=== PATIENT | female | born 1935 | race Caucasian/White ===

== ENCOUNTER → 2016-05-20 | Outpatient (CLI) | payer OTHER ==
[~2016-05-20] VITALS: Ht 160 cm; Wt 68.0 kg
[~2016-05-20] MED LIST: AMBIEN CR12.5 MG PO; ASPIR 8181 MG PO; CALCIUM 500 +1 EAC5 PO; CENTRUM SILVER1 EAC4 PO; COLACE 100 MG100 MG PO; COSAMIN DS TAB1 EACH PO; DILAUDID 2 MG TA2 MG PO; GABAPENTIN 100100 MG PO; HYDROCODONE-AP1 EAC6 PO; LIPITOR 20 MG T20 M1 PO; METAMUCIL PAC1 UDPKT PO; TOPROL XL100 MG PO; ULTRACET TABLET1 TAB PO; VALIUM5 MG PO
--- NOTE | ~2016-05-20 | HPC ---
[facility] [place] [address] PAIN MANAGEMENT CONSULTATION Name: ELODIA OROZCO Room #: REG [facility].#: [id number] Admission: 05/20/16 Attend Phys: Marc Oconnor MD Discharge: Date of : 34 Report #: [id number] THIS REPORT FOR: //name// CC: MEGHANN Oconnor DATE OF REGISTRATION: 05/20/2016 CHIEF COMPLAINT: Intermittent excruciating right knee pain. PHYSICAL EXAMINATION: I had rather 45 minute consultation today with the patient. She is a very pleasant 80-year-old who appears much younger than her stated age. She is here today with her . She has been suffering from severe pain in her right knee. She underwent a very successful right knee arthroplasty in 2007. For 2-3 years following that, she had no problems whatsoever. She then began experiencing intermittent pains in about 2014. The description of these episodes is as follows with no particular activity identified. Usually while in the standing position she develops a very sudden excruciating sharp stabbing pain in her right knee. She cannot really define it is medial or lateral. It seems to involve the entire knee joint and radiates up from the knee into the anterior thigh and down into the lower leg. She is unable to bear weight when this occurs and her pain goes to a 10. She has been typically getting off of her feet, laying down waiting, but the pain does not necessarily go away all that quickly. She has had to take medication and has more recently been to the Emergency Room to receive treatments usually strong opioid including IV Valium plus the opioid Dilaudid most recently, which was able to break the cycle of pain. She has seen numerous physicians including Dr. Nelson Jacob. She saw Dr. Philip Kwan at the [facility]. Dr. Kwan has tried some injections including the aggressive approach of genicular nerve radiofrequency, which was unhelpful. She went to the [facility] where she was given a thorough workup. I reviewed those records, but they do not really show much in the way of diagnostic information for us. The neurologist told her it was not neuropathic and by that I am assuming that they meant that this was not a radicular pain from her back nor a more peripheral large branch nerve that had been compressed or involved based upon findings of EMG. Trials of prophylactic medication have been limited although recently she was initiated on gabapentin. The dose has been gradually increased to tolerance and she is currently at 1200 mg per day. She has not had an episode of pain since initiating the dose of 1200 and we discussed this later in her visit. She has hydrocodone to take for severe episodes as well as tramadol. She and her spend half of the year in [place], where they have a home in [place]. A physician there in the Emergency Room provided her with medication to use for severe episode. He gave her a combination of Valium 5 mg tablets to be used [address] [address] PAIN MANAGEMENT CONSULTATION Name: ELODIA OROZCO Room #: REG [facility]EL[facility] Arellano#: [id number] Admission: 05/20/16 Attend Phys: Marc Oconnor MD Discharge: Date of : 34 Report #: [id number] with hydromorphone 2 mg tablets, instructions were not all that clear to the patient and we discussed some of the potential benefits and risks of those medicines as well later in the visit. PAST MEDICAL HISTORY: Includes surgeries on her right knee in 1992, left knee arthroscopy in 1996, left hip replacement in 1993, right hip replacement in 1997. She had a revision of the right hip in 2005. Dr. Isac Davis placed an X-STOP for spinal stenosis in 2007. The right knee replacement was performed by Dr. Nelson Jacob in 2007 and was described above[address] Dr[address] Kwan in April of last year and in May of last year tried cryotherapy and genicular nerve ablation both unsuccessful in stopping these episodes. Other surgeries include cholecystectomy in 1999. She had a bundle branch block noted on her electrocardiogram in 2007 and underwent cardiac catheterization. She has had cataract surgery as well. REVIEW OF SYSTEMS: Completed by the patient describes cataracts, history of SVT, but otherwise her primary complaints are related to the history given above involving her right knee. MEDICATIONS: Toprol, Ambien, Lipitor, Metamucil, Colace, aspirin, centrum silver, glucosamine, Os-Taz, tramadol, gabapentin 1200 mg daily, hydrocodone p.r.n. SOCIAL HISTORY: She and her travel back and forth between [place] and [place] where they continue to have family to visit. They have homes in both locations. 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 She denies use of tobacco. She enjoys an alcoholic beverage most in the evenings, sometimes more than one. PHYSICAL EXAMINATION: GENERAL: She is an attractive 80-year-old again looking much younger than her stated age. VITAL SIGNS: Her blood pressure is 159/83, heart rate 73, BMI is 26.6. EXTREMITIES: I examined carefully both knees. She has no effusion, no swelling noted. There is no area of tenderness. There is no crepitus with movement. She has good flexion and extension. Lateral movements were tested without any exacerbation of pain. She is able to ambulate easily. IMPRESSION AND PLAN: Intermittent episodic right knee pain. We spent a lot of time today trying to discuss why this might be triggered. There is a possibility that there is some mechanical feature here that triggers a small branch of a nerve, which would then cause very severe localized pain syndrome associated with the additional spasm and tightness. The underlying inciting trauma may be to a small branch nerve. In this case a suppressing medicine like gabapentin might provide nice prophylaxis. I described this to her as we might manage intermittent pain problems such as a migraine headache. Patients who [facility] [address] [place] [address] PAIN MANAGEMENT CONSULTATION Name: ELODIA OROZCO Room #: REG [facility].#: [id number] Admission: 05/20/16 Attend Phys: Marc Oconnor MD Discharge: Date of : 34 Report #: [id number] have 20 migraine headaches per month are quite pleased when their prophylactic medicine reduces the incidence of trigger to once every few months. Hopefully, gabapentin at proper dose well tolerated will allow her that benefit. My final recommendation was to be quite cautious with the combination of a benzodiazepine and a strong opioid such as hydromorphone. All this may be very effective in alleviating her pain, that combination has been implicated in overdose situations around the country. 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 Taking that combination should not be done in a situation when she is alone. If her is observing her, I think that she can titrate that slowly taking hydromorphone perhaps every 30 minutes. We talked about overdose potential with benzodiazepine and opioid. The typical response will be increasing sedation with respiratory issues. I did not mean to scare them, but I wanted to make sure that they medicines and understood the potential consequences. I did not offer any injections nor change her medication at this time, but slowly a consultation visit. I will be happy to see her back if she would like to consider other treatment options in the future. I would suggest against dorsal root stimulator. Given the intermittent nature of this, if we could identify a pain triggering generator simple injections are sometimes helpful about the knee. We will call if they would like to come back. By: [id number] Marc Oconnor MD /nt
[2016-05-20 15:19] VITALS: BP 159/83
== END | disposition home or self-care (01) ==
LOC: PAIN 07:12
DX: M25.561 Pain in right knee (principal); F11.20 Opioid dependence, uncomplicated; G43.909 Migraine, unspecified, not intractable, without status migrainosus; Z96.651 Presence of right artificial knee joint; Z96.643 Presence of artificial hip joint, bilateral; Z98.890 Other specified postprocedural states; Z96.1 Presence of intraocular lens; Z98.49 Cataract extraction status, unspecified eye; Z90.49 Acquired absence of other specified parts of digestive tract

== ENCOUNTER → 2016-07-15 | Outpatient (CLI) | payer OTHER ==
[~2016-07-15] VITALS: Ht 160 cm; Wt 61.2 kg
[~2016-07-15] MED LIST changes: +NEURONTIN300 MG PO
--- NOTE | ~2016-07-15 | HPC ---
[facility] [place] [address] PAIN MANAGEMENT CONSULTATION Name: ELODIA OROZCO Ricci Room #: REG [facility]lon Laverne.#: [id number] Admission: 07/15/16 Attend Phys: Marc Oconnor MD Discharge: Date of : 34 Report #: [id number] THIS REPORT FOR: //name// CC: Kamlesh Oconnor DATE OF REGISTRATION: 07/15/2016. Followup visit for very intermittent excruciating right knee pain, status post right knee arthroplasty in 2007. I am seeing the patient today in followup for her visit in 05/2016. At that time, we discussed medication management in some detail. We have provided her with medications for a baseline to prevent episodes of pain with gabapentin hoping that we would increase the interval between these episodes and decrease the intensity and duration of them when they occur. I am grateful that this seems to have occurred and she is grateful as well. She has done much better with an established plan. In addition to providing baseline preventative medication through gabapentin, we have established a regimen of breakthrough pain medication, which includes the possibility of hydrocodone or the stronger hydromorphone titrated to effect. The caution issues of Valium also to help with muscle spasm has been discussed at previous visit and again today the cautious combination of these medications due to their additive effects was given as a serious precaution. Overall, she is here today for her medication and she and her are preparing to leave for [place] where they spend the summer in [facility]. I have agreed to provide enough medication to carry them through the summer under terms of an opioid agreement and it is important that they will use these medications cautiously and safeguard them while using them for the purposes established. CURRENT MEDICATIONS: Current medicines from our clinic will be gabapentin 1200 mg daily in divided dose of 300/300/600; hydrocodone 5/325, 1-2 tablets as needed for moderate pain; hydromorphone 2-4 mg every 4 hours for extreme severe pain episodes; diazepam 5 mg taken as needed for severe muscle spasm; zolpidem 12.5 mg controlled release at bedtime; tramadol 37.5/325 one to two tablets b.i.d. to 4 times daily as needed, this medication was prescribed by Dr. Muñoz; Lipitor 20 mg daily; Colace as needed; Metamucil as needed; Toprol-XL 100 mg daily. PHYSICAL EXAMINATION: This is a very pleasant female, appears much younger than her stated age. She is able to move from a sitting to standing position, ambulates with only mild features of discomfort. There is no swelling [place] [address] PAIN MANAGEMENT CONSULTATION Name: ELODIA OROZCO Room #: REG [facility] Eileen#: [id number] Admission: 07/15/16 Attend Phys: Marc Oconnor MD Discharge: Date of : 34 Report #: [id number] IMPRESSION: 1. Intermittent right knee pain, status post right knee arthroplasty and musculoskeletal pain. 2. Management of high risk medication. Medications were provided for what I hope will be a duration of 3 or 4 months while she is away. Instructions were provided on the use of medications again and safeguarding. We will follow up as needed when she returns to the city. By: [id number] Marc Oconnor MD /nt
[2016-07-15 12:38] VITALS: BP 159/75
== END | disposition home or self-care (01) ==
LOC: PAIN 07:07
DX: M25.561 Pain in right knee (principal)

== ENCOUNTER → 2017-08-05 | Outpatient (CLI) | payer OTHER ==
[~2017-08-05] VITALS: Ht 160 cm; Wt 61.7 kg
--- NOTE | ~2017-08-05 | HPC ---
[facility] [address] [place] [address] PAIN MANAGEMENT CONSULTATION Name: ELODIA OROZCO Ricci Room #: REG MARIELA Eileen#: [id number] Admission: 08/05/17 Attend Phys: Fredy Warner MD Discharge: Date of : 34 Report #: [id number] THIS REPORT FOR: //name// CC: Kamlesh Warner DATE OF SERVICE: 08/05/2017 FOLLOWUP COMPLAINT: Here for medication. FOLLOWUP HISTORY: The patient is an 82-year-old female who has been seen in the Pain Clinic in the past because of chronic pain. She has pain and discomfort involving her right knee. She had an arthroplasty in 2007. Continues to be treated with medical management. Feels that the gabapentin medication is helpful. She has noted a worsening of her pain over the last few weeks. Notes that her pain became quite problematic with significant swelling in her right knee and leg. States that it was very hot to touch. Continues to have some burning, crushing, stabbing, intermittent pain. Rates her pain as a 1/10 today. Had pain, which was so problematic that she went to the Emergency Room. She has significant difficulty in climbing stairs. She is considering going to [place], [place]. She and her have a home there. She generally stays for about 4 months. She has returned to the Pain Clinic for renewal of her medications. The hope is that she can stay for the 4 months there. She would like to have her medications written. She will get part of her medications here. She will then refill her medications in [facility] if necessary. ALLERGIES: No known drug allergies. CURRENT MEDICATIONS: Gabapentin 300 mg q.i.d., takes 1-1/2 tablets, diazepam 5 mg q. 6 hours p.r.n. muscle spasms, hydrocodone 2 mg 2 tablets q.4 hours p.r.n., tramadol 37.5/325 one tablet b.i.d., calcium, vitamin D3, Cosamin DS tablets/glucosamine chondroitin, multivitamins, Centrum Silver, aspirin 81 mg, Colace 100 mg, Metamucil 6 g packet b.i.d., metoprolol XL 100 mg, Lipitor, and Ambien 12.5 at bedtime for insomnia. PAIN CLINIC ASSESSMENT: 1. The patient osteoarthritic changes in her right knee. 2. Height 5 feet 3 inches, weight 136 pounds, BMI is 24. 3. VITAL SIGNS: Blood pressure 148/82, pulse 98, respiratory rate 14, room air saturation 96%. 4. Pain intensity 1/2 today. 5. Fall risk. The patient has not fallen in the last 3 months. 6. Blood thinner. The patient is not on a blood thinning medication. 7. Hypertension. The patient is not being treated for hypertension. 8. Opioid therapy greater than 6 weeks. The [place] [address] PAIN MANAGEMENT CONSULTATION Name: ELODIA OROZCO Ricci Room #: REG [facility] Eileen#: [id number] Admission: 08/05/17 Attend Phys: Fredy Warner MD Discharge: Date of : 34 Report #: [id number] and gets her medication from one source. 9. Risk assessment tool, low risk 0 for use of opioids. 10. Functional assessment tool 66/70 showing significant problems with activities of daily living secondary to pain. 11. Recreational drug use. Denies use of recreational drugs. 12. Tobacco: The patient has never smoked cigarettes. 13. Alcohol. The patient drinks about 3 glasses of wine daily. PHYSICAL EXAMINATION: GENERAL: The patient is well-developed, well-nourished white female, appears younger than her stated age. She is alert and oriented x 3. Affect is appropriate. Speech is fluent. HEENT: Normocephalic, atraumatic. Extraocular eye muscles are intact. Hearing is within normal limits. Sclerae nonicteric. NECK: Without adenopathy or JVD. Good range of motion. MUSCULOSKELETAL: Without significant kyphosis, scoliosis or lordosis. Lower extremity, the patient has pain and discomfort in the right leg. Has some discomfort in her knee. Walks with an antalgic gait. Uses a cane. IMPRESSION: 1. Right knee pain, status post right knee arthroplasty. 2. Hypertension. 3. Hypercholesterolemia. RECOMMENDATION: The patient is going to [place], [place]. We have written medications for her. They include tramadol 7.35 mg, Dilaudid 2 mg q.4 hours p.r.n., hydrocodone 5/325, diazepam 5 mg, gabapentin 300 mg 1 in the morning, 1 afternoon and 2 at bedtime. By: [id number] Fredy Warner MD /nt
[2017-08-05 09:07] VITALS: BP 148/82
== END ==
LOC: PAIN 06:56
DX: M17.11 Unilateral primary osteoarthritis, right knee (principal); I10 Essential (primary) hypertension; E78.00 Pure hypercholesterolemia, unspecified; Z96.651 Presence of right artificial knee joint

== ENCOUNTER → 2018-01-04 | Outpatient (CLI) | payer OTHER ==
[~2018-01-04] VITALS: Ht 160 cm; Wt 61.8 kg
[2018-01-04 11:51] VITALS: BP 149/78
== END ==
LOC: PAIN 06:37
DX: M79.604 Pain in right leg (principal); M25.561 Pain in right knee; M47.896 Other spondylosis, lumbar region; Z79.899 Other long term (current) drug therapy; Z72.89 Other problems related to lifestyle